=== PATIENT | male | born 1995 | race Caucasian/White ===

== ENCOUNTER 2021-02-24 14:48 | Inpatient (IN) | payer MEDICARE, MEDICAID ==
[~2021-02-24] VITALS: Ht 162.6 cm; Wt 56.0 kg
[~2021-02-24 14:48] MED LIST: ENAL2.5T47 PO; FAMO20TA10 PO; METO-158 PO; PRE5T PO
[2021-02-24] MEDS ORDERED: SODIUM CHLORIDE 0.9% 1,000 ML IV ONE (16:45)
[2021-02-24] MEDS ORDERED: HYDROmorphone HCL 2 MG/ML VL IV ONE ×2 (16:45→21:15)
[2021-02-24] MEDS ORDERED: PROMETHAZINE HCL 25 MG/ML 1ML IV PRN (16:45)
[2021-02-24 18:03] LABS: Basophils # (auto) 0 10 ^3/uL (0-0.2); Basophils % (auto) 0.1 % (0.0-2.0); Eosinophils # (auto) 0 10 ^3/uL (0-0.8); Eosinophils % (auto) 0.1 % (0.0-7.0); Hemoglobin 15.9 g/dL (13.5-17.5); Lymphocytes # (auto) 0.6 10 ^3/uL (0.4-5.4); Lymphocytes % (auto) 3.9 % (10.0-50.0); Mean Corpuscular Hemoglobin 29.4 pg (28.0-32.0); Mean Corpuscular Hgb Conc. 33.7 g/dL (32.0-36.0); Mean Corpuscular Volume 87.3 fL (80.0-100.0); Monocytes # (auto) 0.4 10 ^3/uL (0-1.3); Monocytes % (auto) 2.9 % (0.0-12.0); Neutrophils # (auto) 14.4 10 ^3/uL (1.6-8.6); Nucleated Red Blood Cells % 0.1 %; Red Blood Cells 5.38 10^6/uL (4.5-5.90); Red Cell Distribution Width 16.2 % (11.8-14.3); White Blood Cell 15.5 10^3/uL (4.4-10.8)
[2021-02-24 18:12] VITALS: BP 135/93
[2021-02-24 18:19] LABS: Albumin 4.4 g/dL (3.4-5.0); Calcium 9.8 mg/dL (8.5-10.1); Magnesium 2.4 mg/dL (1.6-2.6); Potassium 4.3 mmol/L (3.5-5.1)
[2021-02-24 18:22] LABS: Total Protein 8.4 g/dL (6.4-8.2)
[2021-02-24 18:37] LABS: BUN/Creatinine Ratio 87.5
[2021-02-24 20:07] VITALS: BP 141/91
[2021-02-24] MEDS ORDERED: levoFLOXacin 750MG 150 ML IV ONE (20:45)
[2021-02-24] MEDS ORDERED: LACTULOSE 10g/15ml SOLN PR ONE (20:45)
[2021-02-24] MEDS ORDERED: metroNIDAZOLE 500MG/100ML 100 ML IV ONE (20:45)
[2021-02-24] MEDS ORDERED: ONDANSETRON HCL 4 MG/2 ML VIAL IV ONE (21:15)
[2021-02-24] MEDS: SODIUM CHLORIDE 0.9% 1,000 ML IV SCH (22:00)
[2021-02-24] MEDS ORDERED: ACETAMINOPHEN 325 MG RECT SUPP PR PRN (22:00)
[2021-02-24] MEDS ORDERED: MORPHINE SULF INJ 2 MG/ML SYRINGE 1ML IV PRN (22:00)
[2021-02-24] MEDS ORDERED: NITROGLYCERIN 0.4 MG SL TAB SL PRN (22:00)
[2021-02-24] MEDS ORDERED: VANCOMYCIN PER PHARMACY 0 MG IV SCH (22:00)
[2021-02-24] MEDS ORDERED: VANCOMYCIN 1GM/250ML 250 ML IV ONE (22:15)
[2021-02-24 22:59] VITALS: BP 132/87
[2021-02-24] MEDS ORDERED: LACTULOSE 20Gm/30ML SOLN ONE ×2 (23:13→23:15)
[2021-02-25] VITALS (14 sets, daily range): BP systolic 120–139; BP diastolic 75–94
[2021-02-25] MEDS: FAMOTIDINE (10MG/ML) 2ML VL IV SCH ×3 (01:08→22:00)
[2021-02-25] MEDS ORDERED: diphenhdrAMINE HCL 50 MG/1 ML VL ONE (02:17)
[2021-02-25] MEDS ORDERED: diphenhdrAMINE HCL 50 MG/1 ML VL IV ONE (02:30)
[2021-02-25] MEDS: HYDROmorphone HCL 2 MG/ML VL IV PRN ×4 (04:45→20:15)
[2021-02-25 05:27] LABS: Basophils # (auto) 0 10 ^3/uL (0-0.2); Basophils % (auto) 0.3 % (0.0-2.0); Eosinophils # (auto) 0 10 ^3/uL (0-0.8); Eosinophils % (auto) 0.1 % (0.0-7.0); Hematocrit 43.1 % (41.0-53.0); Hemoglobin 14.5 g/dL (13.5-17.5); Lymphocytes # (auto) 1.4 10 ^3/uL (0.4-5.4); Lymphocytes % (auto) 16.2 % (10.0-50.0); Mean Corpuscular Hemoglobin 29.5 pg (28.0-32.0); Mean Corpuscular Hgb Conc. 33.6 g/dL (32.0-36.0); Mean Corpuscular Volume 87.6 fL (80.0-100.0); Monocytes # (auto) 0.5 10 ^3/uL (0-1.3); Monocytes % (auto) 6.4 % (0.0-12.0); Neutrophils # (auto) 6.5 10 ^3/uL (1.6-8.6); Nucleated Red Blood Cells % 0.1 %; Red Blood Cells 4.92 10^6/uL (4.5-5.90); Red Cell Distribution Width 15.9 % (11.8-14.3); White Blood Cell 8.4 10^3/uL (4.4-10.8)
[2021-02-25 05:43] LABS: Albumin 4.1 g/dL (3.4-5.0); Anion Gap 13 (5-15); Blood Urea Nitrogen 14 mg/dL (7-18); Carbon Dioxide 19 mmol/L (21-32); Chloride 109 mmol/L (98-107); Glucose 84 mg/dL (74-106); Potassium 3.2 mmol/L (3.5-5.1); Sodium 141 mmol/L (136-145)
[2021-02-25 05:47] LABS: Alanine Aminotransferase 40 U/L (16-61); Alkaline Phosphatase 142 U/L (45-117); Aspartate Aminotransferase 40 U/L (15-37); BUN/Creatinine Ratio 93.3; Bilirubin, Total 1.4 mg/dL (0.2-1.0); GFR African American 1054 mL/min; GFR Non-African American 871 mL/min
[2021-02-25] MEDS ORDERED: LACTULOSE 10g/15ml SOLN PR SCH ×2 (06:30)
[2021-02-25] MEDS: metroNIDAZOLE 500MG/100ML 100 ML IV SCH ×3 (06:45→22:00)
[2021-02-25] MEDS: ENOXAPARIN SOD 40 MG/0.4 ML SYRINGE SC SCH (08:46)
[2021-02-25] MEDS ORDERED: LACTULOSE 20Gm/30ML SOLN PO PRN (09:30)
[2021-02-25] MEDS: SODIUM CHLORIDE 0.9% 1,000 ML IV SCH ×2 (15:28→19:14)
[2021-02-25] MEDS ORDERED: levoFLOXacin 500MG 100 ML IV SCH (18:00)
[2021-02-25] MEDS: levoFLOXacin 750MG 150 ML IV SCH (20:00)
[2021-02-25] MEDS: METOPROLOL TARTRATE 25 MG TAB PO SCH (22:00)
[2021-02-26] VITALS (7 sets, daily range): BP systolic 113–139; BP diastolic 70–100
[2021-02-26] MEDS: HYDROmorphone HCL 2 MG/ML VL IV PRN ×6 (00:05→18:36)
[2021-02-26] MEDS: ONDANSETRON HCL 4 MG/2 ML VIAL IV PRN ×3 (02:36→14:26)
[2021-02-26] MEDS: metroNIDAZOLE 500MG/100ML 100 ML IV SCH ×3 (06:00→21:31)
[2021-02-26] MEDS: SODIUM CHLORIDE 0.9% 1,000 ML IV SCH ×2 (06:15→18:08)
[2021-02-26] MEDS: ENOXAPARIN SOD 40 MG/0.4 ML SYRINGE SC SCH (09:12)
[2021-02-26] MEDS: FAMOTIDINE (10MG/ML) 2ML VL IV SCH ×2 (09:12→21:31)
[2021-02-26] MEDS: METOPROLOL TARTRATE 25 MG TAB PO SCH ×2 (09:45→21:32)
[2021-02-26] MEDS ORDERED: levoFLOXacin 750MG 150 ML IV SCH (10:00)
[2021-02-26] MEDS: POTASSIUM CHL 20 Meq TABLET PO ONE ×2 (12:20→12:29)
[2021-02-26 12:30] LABS: Basophils # (auto) 0 10 ^3/uL (0-0.2); Basophils % (auto) 0.5 % (0.0-2.0); Eosinophils # (auto) 0.1 10 ^3/uL (0-0.8); Eosinophils % (auto) 0.8 % (0.0-7.0); Hematocrit 37.4 % (41.0-53.0); Hemoglobin 12.5 g/dL (13.5-17.5); Lymphocytes # (auto) 1.7 10 ^3/uL (0.4-5.4); Lymphocytes % (auto) 24.6 % (10.0-50.0); Mean Corpuscular Hemoglobin 29.6 pg (28.0-32.0); Mean Corpuscular Hgb Conc. 33.3 g/dL (32.0-36.0); Mean Corpuscular Volume 88.9 fL (80.0-100.0); Monocytes # (auto) 0.5 10 ^3/uL (0-1.3); Monocytes % (auto) 7.8 % (0.0-12.0); Neutrophils # (auto) 4.5 10 ^3/uL (1.6-8.6); Neutrophils % (auto) 66.3 % (37.0-80.0); Nucleated Red Blood Cells % 0.2 %; Red Cell Distribution Width 16.3 % (11.8-14.3); White Blood Cell 6.8 10^3/uL (4.4-10.8)
[2021-02-26] MEDS ORDERED: POTASSIUM EFFERVESENT TAB 25 MEQ GT ONE (12:30)
[2021-02-26 12:45] LABS: Phosphorus 3.4 mg/dL (2.5-4.90)
[2021-02-26] MEDS ORDERED: LORazepam 2MG/ML-1ML VIAL IV ONE ×2 (13:15→13:30)
[2021-02-26] MEDS ORDERED: LORazepam 2MG/ML-1ML VIAL IV PRN (13:15)
[2021-02-26] MEDS ORDERED: SUCRALFATE 1 GM/10 ML ORAL SUSP PO SCH (13:45)
[2021-02-26] MEDS: PANTOPRAZOLE 40 MG TAB PO SCH ×2 (14:13→21:33)
[2021-02-26] MEDS: SUCRALFATE 1 GM/10 ML ORAL SUSP PO SCH ×2 (16:45→21:32)
[2021-02-26] MEDS: ALPRAZolam 0.25 MG TAB PO PRN (16:55)
[2021-02-26] MEDS: levoFLOXacin 750MG 150 ML IV SCH (20:52)
[2021-02-27] VITALS (59 sets, daily range): BP systolic 91–146; BP diastolic 50–106
[2021-02-27] MEDS: HYDROmorphone HCL 2 MG/ML VL IV PRN ×2 (00:03→21:13)
[2021-02-27] MEDS: ALPRAZolam 0.25 MG TAB PO PRN ×2 (00:04→08:19)
[2021-02-27] MEDS: SUCRALFATE 1 GM/10 ML ORAL SUSP PO SCH ×4 (06:34→22:00)
[2021-02-27] MEDS: metroNIDAZOLE 500MG/100ML 100 ML IV SCH ×3 (06:40→22:33)
[2021-02-27] MEDS: SODIUM CHLORIDE 0.9% 1,000 ML IV SCH ×2 (07:15→21:12)
[2021-02-27] MEDS: FAMOTIDINE (10MG/ML) 2ML VL IV SCH ×2 (09:39→22:33)
[2021-02-27] MEDS: ENOXAPARIN SOD 40 MG/0.4 ML SYRINGE SC SCH (09:39)
[2021-02-27] MEDS: METOPROLOL TARTRATE 25 MG TAB PO SCH ×2 (09:39→22:00)
[2021-02-27] MEDS: PANTOPRAZOLE 40 MG TAB PO SCH ×2 (09:40→22:00)
[2021-02-27] MEDS ORDERED: ACETYLCYSTEINE 10 %(100MG/ML) SOL 4ML NEB ONE (09:45)
[2021-02-27] MEDS ORDERED: ALBUTEROL SULF 2.5 MG/0.5ML(0.5%) NEB SOLN NEB ONE (09:45)
[2021-02-27 10:04] LABS: Basophils # (auto) 0 10 ^3/uL (0-0.2); Basophils % (auto) 0.2 % (0.0-2.0); Eosinophils # (auto) 0 10 ^3/uL (0-0.8); Eosinophils % (auto) 0.1 % (0.0-7.0); Hemoglobin 14.2 g/dL (13.5-17.5); Lymphocytes % (auto) 6.9 % (10.0-50.0); Mean Corpuscular Hemoglobin 29.4 pg (28.0-32.0); Mean Corpuscular Volume 89.1 fL (80.0-100.0); Monocytes # (auto) 0.6 10 ^3/uL (0-1.3); Monocytes % (auto) 4.4 % (0.0-12.0); Neutrophils # (auto) 12.2 10 ^3/uL (1.6-8.6); Neutrophils % (auto) 88.4 % (37.0-80.0); Red Blood Cells 4.83 10^6/uL (4.5-5.90); Red Cell Distribution Width 15.9 % (11.8-14.3); White Blood Cell 13.8 10^3/uL (4.4-10.8)
[2021-02-27 10:20] LABS: Albumin 3.8 g/dL (3.4-5.0); Anion Gap 12 (5-15); Blood Urea Nitrogen 5 mg/dL (7-18); Calcium 8.8 mg/dL (8.5-10.1); Carbon Dioxide 16 mmol/L (21-32); Chloride 109 mmol/L (98-107); Glucose 76 mg/dL (74-106); Potassium 4.5 mmol/L (3.5-5.1); Sodium 137 mmol/L (136-145)
[2021-02-27 10:27] LABS: Alanine Aminotransferase 39 U/L (16-61); Alkaline Phosphatase 143 U/L (45-117); Aspartate Aminotransferase 65 U/L (15-37); Bilirubin, Total 0.8 mg/dL (0.2-1.0); Total Protein 7.6 g/dL (6.4-8.2)
[2021-02-27 10:29] LABS: BUN/Creatinine Ratio 33.3; GFR African American 1054 mL/min; GFR Non-African American 871 mL/min
[2021-02-27] MEDS: IPRATROPIUM BROM 0.5 MG/2.5ML INH SOL NEB SCH ×3 (13:53→22:11)
[2021-02-27] MEDS: ACETYLCYSTEINE 20%(200MG/ML) SOL 4ML NEB SCH ×3 (13:53→22:11)
[2021-02-27] MEDS: ALBUTEROL SULF 2.5 MG/0.5ML(0.5%) NEB SOLN NEB SCH ×3 (13:53→22:11)
[2021-02-27] MEDS ORDERED: levoFLOXacin 750MG 150 ML IV SCH (18:00)
[2021-02-27] MEDS: levoFLOXacin 750MG 150 ML IV SCH (21:13)
[2021-02-28] VITALS (83 sets, daily range): BP systolic 70–117; BP diastolic 36–83
[2021-02-28 03:52] LABS: Basophils # (auto) 0 10 ^3/uL (0-0.2); Basophils % (auto) 0.1 % (0.0-2.0); Eosinophils # (auto) 0 10 ^3/uL (0-0.8); Eosinophils % (auto) 0.3 % (0.0-7.0); Hematocrit 42.3 % (41.0-53.0); Hemoglobin 14.1 g/dL (13.5-17.5); Lymphocytes # (auto) 0.9 10 ^3/uL (0.4-5.4); Lymphocytes % (auto) 10.5 % (10.0-50.0); Mean Corpuscular Hemoglobin 29.4 pg (28.0-32.0); Mean Corpuscular Hgb Conc. 33.3 g/dL (32.0-36.0); Mean Corpuscular Volume 88.2 fL (80.0-100.0); Monocytes # (auto) 0.5 10 ^3/uL (0-1.3); Monocytes % (auto) 6.3 % (0.0-12.0); Neutrophils % (auto) 82.8 % (37.0-80.0); Nucleated Red Blood Cells % 0.1 %; Red Cell Distribution Width 15.9 % (11.8-14.3); White Blood Cell 8.4 10^3/uL (4.4-10.8)
[2021-02-28 04:11] LABS: Anion Gap 16 (5-15); Blood Urea Nitrogen 7 mg/dL (7-18); Calcium 9.2 mg/dL (8.5-10.1); Carbon Dioxide 13 mmol/L (21-32); Chloride 113 mmol/L (98-107); Glucose 69 mg/dL (74-106); Potassium 3.4 mmol/L (3.5-5.1); Sodium 142 mmol/L (136-145)
[2021-02-28 04:16] LABS: BUN/Creatinine Ratio 46.7; GFR African American 1054 mL/min; GFR Non-African American 871 mL/min
[2021-02-28] MEDS: metroNIDAZOLE 500MG/100ML 100 ML IV SCH ×3 (06:00→22:26)
[2021-02-28] MEDS: ACETYLCYSTEINE 20%(200MG/ML) SOL 4ML NEB SCH ×5 (06:28→22:27)
[2021-02-28] MEDS: IPRATROPIUM BROM 0.5 MG/2.5ML INH SOL NEB SCH ×5 (06:28→22:27)
[2021-02-28] MEDS: ALBUTEROL SULF 2.5 MG/0.5ML(0.5%) NEB SOLN NEB SCH ×5 (06:29→22:27)
[2021-02-28] MEDS: SUCRALFATE 1 GM/10 ML ORAL SUSP PO SCH ×4 (07:00→22:00)
[2021-02-28] MEDS: SODIUM CHLORIDE 0.9% 1,000 ML IV SCH ×2 (08:15→21:28)
[2021-02-28] MEDS: PANTOPRAZOLE 40 MG TAB PO SCH ×2 (08:57→22:27)
[2021-02-28] MEDS: HYDROmorphone HCL 2 MG/ML VL IV PRN ×3 (09:11→19:48)
[2021-02-28] MEDS: FAMOTIDINE (10MG/ML) 2ML VL IV SCH (09:11)
[2021-02-28] MEDS: METOPROLOL TARTRATE 25 MG TAB PO SCH ×2 (09:47→22:00)
[2021-02-28] MEDS: ENOXAPARIN SOD 40 MG/0.4 ML SYRINGE SC SCH (10:00)
[2021-02-28 10:21] LABS: INR 1.12 (0.9-1.15)
[2021-02-28] MEDS ORDERED: IOHEXOL 350 MG/ML 100ML IJ ONE (12:36)
[2021-02-28] MEDS ORDERED: DEXTROSE 50% SYRINGE 50 ML IV ONE (15:56)
[2021-02-28] MEDS: levoFLOXacin 750MG 150 ML IV SCH (19:48)
[2021-02-28] MEDS: NOREPINEPHRINE 8 MG/250ML KIT 250 ML IV SCH (21:28)
[2021-02-28] MEDS: ONDANSETRON HCL 4 MG/2 ML VIAL IV PRN (21:45)
[2021-02-28] MEDS ORDERED: DEXTROSE (50%) 50ML SYRG IV PRN (23:00)
[2021-03-01] VITALS (105 sets, daily range): BP systolic 83–126; BP diastolic 43–91
[2021-03-01] MEDS: ACCU-CHEK COMFORT CURVE STRIP VI SCH ×7 (00:10→23:55)
[2021-03-01] MEDS: HYDROmorphone HCL 2 MG/ML VL IV PRN ×6 (01:25→22:03)
[2021-03-01] MEDS: InsuLIN REG 1unit/0.01ml Soln (100units/ml) SC SCH ×7 (04:00→23:55)
[2021-03-01 04:27] LABS: Basophils # (auto) 0 10 ^3/uL (0-0.2); Basophils % (auto) 0.3 % (0.0-2.0); Eosinophils # (auto) 0 10 ^3/uL (0-0.8); Eosinophils % (auto) 0.2 % (0.0-7.0); Hematocrit 32.7 % (41.0-53.0); Hemoglobin 11.1 g/dL (13.5-17.5); Lymphocytes # (auto) 0.9 10 ^3/uL (0.4-5.4); Lymphocytes % (auto) 9.4 % (10.0-50.0); Mean Corpuscular Hemoglobin 29.3 pg (28.0-32.0); Mean Corpuscular Hgb Conc. 33.9 g/dL (32.0-36.0); Mean Corpuscular Volume 86.3 fL (80.0-100.0); Monocytes # (auto) 0.6 10 ^3/uL (0-1.3); Monocytes % (auto) 6.4 % (0.0-12.0); Neutrophils # (auto) 8.4 10 ^3/uL (1.6-8.6); Neutrophils % (auto) 83.7 % (37.0-80.0); Red Blood Cells 3.79 10^6/uL (4.5-5.90); Red Cell Distribution Width 15.8 % (11.8-14.3); White Blood Cell 10.1 10^3/uL (4.4-10.8)
[2021-03-01 04:44] LABS: BUN/Creatinine Ratio 31.3; Calcium 8.1 mg/dL (8.5-10.1); Potassium 3.3 mmol/L (3.5-5.1)
[2021-03-01] MEDS: metroNIDAZOLE 500MG/100ML 100 ML IV SCH ×3 (05:22→22:01)
[2021-03-01 06:00] LABS: Urine Bacteria FEW /hpf (None Seen); Urine Blood 1+ /uL (Negative); Urine Hyaline Cast FEW /lpf (0 - 2); Urine Mucus FEW (None Seen); Urine WBC 1 /hpf (0 - 3)
[2021-03-01] MEDS: IPRATROPIUM BROM 0.5 MG/2.5ML INH SOL NEB SCH ×5 (06:56→22:38)
[2021-03-01] MEDS: ALBUTEROL SULF 2.5 MG/0.5ML(0.5%) NEB SOLN NEB SCH ×5 (06:56→22:38)
[2021-03-01] MEDS: ACETYLCYSTEINE 20%(200MG/ML) SOL 4ML NEB SCH ×5 (06:57→22:38)
[2021-03-01] MEDS: SUCRALFATE 1 GM/10 ML ORAL SUSP PO SCH ×4 (09:40→21:59)
[2021-03-01] MEDS: ENOXAPARIN SOD 40 MG/0.4 ML SYRINGE SC SCH ×2 (10:00→10:36)
[2021-03-01] MEDS: SODIUM CHLORIDE 0.9% 1,000 ML IV SCH ×2 (10:00→21:59)
[2021-03-01] MEDS: METOPROLOL TARTRATE 25 MG TAB PO SCH ×2 (10:31→22:00)
[2021-03-01] MEDS: PANTOPRAZOLE 40 MG TAB PO SCH ×2 (10:32→21:59)
[2021-03-01] MEDS ORDERED: POTASSIUM CHL 20MEQ/100ML 100 ML IV ONE (11:00)
[2021-03-01] MEDS: levoFLOXacin 750MG 150 ML IV SCH (20:26)
[2021-03-01] MEDS: NOREPINEPHRINE 8 MG/250ML KIT 250 ML IV SCH (20:27)
[2021-03-01] MEDS: ONDANSETRON HCL 4 MG/2 ML VIAL IV PRN (22:17)
[2021-03-02] VITALS (62 sets, daily range): BP systolic 92–139; BP diastolic 54–94
[2021-03-02] MEDS: ONDANSETRON HCL 4 MG/2 ML VIAL IV PRN ×4 (03:42→22:16)
[2021-03-02] MEDS: ACCU-CHEK COMFORT CURVE STRIP VI SCH ×5 (03:57→19:29)
[2021-03-02] MEDS: InsuLIN REG 1unit/0.01ml Soln (100units/ml) SC SCH ×5 (03:57→19:29)
[2021-03-02 04:15] LABS: Basophils # (auto) 0 10 ^3/uL (0-0.2); Basophils % (auto) 0.3 % (0.0-2.0); Eosinophils # (auto) 0 10 ^3/uL (0-0.8); Eosinophils % (auto) 0.6 % (0.0-7.0); Hematocrit 30.8 % (41.0-53.0); Hemoglobin 10.7 g/dL (13.5-17.5); Lymphocytes # (auto) 1.3 10 ^3/uL (0.4-5.4); Mean Corpuscular Hemoglobin 29.9 pg (28.0-32.0); Mean Corpuscular Hgb Conc. 34.8 g/dL (32.0-36.0); Mean Corpuscular Volume 85.8 fL (80.0-100.0); Monocytes # (auto) 0.4 10 ^3/uL (0-1.3); Monocytes % (auto) 5.8 % (0.0-12.0); Neutrophils # (auto) 4.6 10 ^3/uL (1.6-8.6); Neutrophils % (auto) 73.3 % (37.0-80.0); Nucleated Red Blood Cells % 0.1 %; Red Cell Distribution Width 15.7 % (11.8-14.3); White Blood Cell 6.3 10^3/uL (4.4-10.8)
[2021-03-02 04:32] LABS: Anion Gap 10 (5-15); Blood Urea Nitrogen 3 mg/dL (7-18); Calcium 7.8 mg/dL (8.5-10.1); Carbon Dioxide 18 mmol/L (21-32); Chloride 110 mmol/L (98-107); Glucose 74 mg/dL (74-106); Potassium 3.3 mmol/L (3.5-5.1); Sodium 138 mmol/L (136-145)
[2021-03-02 04:37] LABS: GFR African American 1054 mL/min; GFR Non-African American 871 mL/min
[2021-03-02] MEDS: HYDROmorphone HCL 2 MG/ML VL IV PRN ×5 (05:25→21:05)
[2021-03-02] MEDS: metroNIDAZOLE 500MG/100ML 100 ML IV SCH ×3 (05:36→22:22)
[2021-03-02] MEDS ORDERED: MAGNESIUM SULFATE 1GM/100ML 100 ML IV ONE (06:26)
[2021-03-02] MEDS ORDERED: POTASSIUM CHL 20MEQ/100ML 100 ML IV ONE (06:30)
[2021-03-02] MEDS: IPRATROPIUM BROM 0.5 MG/2.5ML INH SOL NEB SCH ×5 (06:31→22:44)
[2021-03-02] MEDS: ALBUTEROL SULF 2.5 MG/0.5ML(0.5%) NEB SOLN NEB SCH ×5 (06:31→22:44)
[2021-03-02] MEDS: ACETYLCYSTEINE 20%(200MG/ML) SOL 4ML NEB SCH ×5 (06:31→22:45)
[2021-03-02] MEDS: MAGNESIUM SULFATE 1GM/100ML 100 ML IV SCH ×4 (06:33→11:20)
[2021-03-02] MEDS: SUCRALFATE 1 GM/10 ML ORAL SUSP PO SCH ×4 (06:34→22:22)
[2021-03-02] MEDS ORDERED: FAMOTIDINE (10MG/ML) 2ML VL IV SCH (08:00)
[2021-03-02] MEDS: METOPROLOL TARTRATE 25 MG TAB PO SCH ×2 (10:17→22:00)
[2021-03-02] MEDS: ENOXAPARIN SOD 40 MG/0.4 ML SYRINGE SC SCH (10:18)
[2021-03-02] MEDS: SODIUM CHLORIDE 0.9% 1,000 ML IV SCH ×2 (10:39→23:44)
[2021-03-02] MEDS: PANTOPRAZOLE 40 MG/10 ML VIAL INJ IV SCH ×2 (11:20→22:22)
[2021-03-02] MEDS: NOREPINEPHRINE 8 MG/250ML KIT 250 ML IV SCH (12:00)
[2021-03-02] MEDS ORDERED: SODIUM CHLORIDE 0.9 % NEB SOLN 3ML NEB ONE ×2 (18:52→19:32)
[2021-03-02] MEDS: ALPRAZolam 0.25 MG TAB PO PRN (19:27)
[2021-03-02] MEDS: levoFLOXacin 750MG 150 ML IV SCH (19:31)
[2021-03-03] VITALS (39 sets, daily range): BP systolic 99–139; BP diastolic 65–94
[2021-03-03] MEDS: ACCU-CHEK COMFORT CURVE STRIP VI SCH ×6 (00:22→20:01)
[2021-03-03] MEDS: HYDROmorphone HCL 2 MG/ML VL IV PRN ×6 (00:28→21:47)
[2021-03-03 03:57] LABS: Basophils # (auto) 0 10 ^3/uL (0-0.2); Basophils % (auto) 0.3 % (0.0-2.0); Eosinophils # (auto) 0 10 ^3/uL (0-0.8); Eosinophils % (auto) 0.7 % (0.0-7.0); Hematocrit 33.9 % (41.0-53.0); Hemoglobin 11.5 g/dL (13.5-17.5); Lymphocytes # (auto) 0.9 10 ^3/uL (0.4-5.4); Lymphocytes % (auto) 13.4 % (10.0-50.0); Mean Corpuscular Hemoglobin 29.2 pg (28.0-32.0); Mean Corpuscular Hgb Conc. 33.9 g/dL (32.0-36.0); Mean Corpuscular Volume 86.3 fL (80.0-100.0); Monocytes # (auto) 0.3 10 ^3/uL (0-1.3); Monocytes % (auto) 4.3 % (0.0-12.0); Neutrophils # (auto) 5.4 10 ^3/uL (1.6-8.6); Neutrophils % (auto) 81.3 % (37.0-80.0); Red Blood Cells 3.93 10^6/uL (4.5-5.90); Red Cell Distribution Width 15.9 % (11.8-14.3); White Blood Cell 6.6 10^3/uL (4.4-10.8)
[2021-03-03] MEDS: InsuLIN REG 1unit/0.01ml Soln (100units/ml) SC SCH ×6 (04:00→20:00)
[2021-03-03 04:15] LABS: Anion Gap 11 (5-15); Blood Urea Nitrogen 2 mg/dL (7-18); Carbon Dioxide 17 mmol/L (21-32); Chloride 112 mmol/L (98-107); Glucose 76 mg/dL (74-106); Potassium 3.2 mmol/L (3.5-5.1); Sodium 140 mmol/L (136-145)
[2021-03-03 04:31] LABS: BUN/Creatinine Ratio 13.3; GFR African American 1054 mL/min; GFR Non-African American 871 mL/min
[2021-03-03] MEDS: metroNIDAZOLE 500MG/100ML 100 ML IV SCH ×3 (06:17→21:59)
[2021-03-03] MEDS: SUCRALFATE 1 GM/10 ML ORAL SUSP PO SCH ×4 (06:32→21:48)
[2021-03-03] MEDS: ALBUTEROL SULF 2.5 MG/0.5ML(0.5%) NEB SOLN NEB SCH ×5 (07:02→22:19)
[2021-03-03] MEDS: IPRATROPIUM BROM 0.5 MG/2.5ML INH SOL NEB SCH ×5 (07:02→22:19)
[2021-03-03] MEDS: ACETYLCYSTEINE 20%(200MG/ML) SOL 4ML NEB SCH ×5 (07:03→22:20)
[2021-03-03] MEDS: ENOXAPARIN SOD 40 MG/0.4 ML SYRINGE SC SCH (09:43)
[2021-03-03] MEDS: PANTOPRAZOLE 40 MG/10 ML VIAL INJ IV SCH ×2 (09:43→21:46)
[2021-03-03] MEDS: METOPROLOL TARTRATE 25 MG TAB PO SCH ×2 (09:43→21:48)
[2021-03-03] MEDS: NOREPINEPHRINE 8 MG/250ML KIT 250 ML IV SCH (09:44)
[2021-03-03] MEDS: SODIUM CHLORIDE 0.9% 1,000 ML IV SCH ×2 (13:29→23:45)
[2021-03-03] MEDS ORDERED: LIDOCAINE 2%HCL (LOCAL ANESTH.) INJ 20ML MDV ONE (14:08)
[2021-03-03] MEDS ORDERED: LIDOCAINE HCL 2% TOP JELLY 5ML TOP ONE (14:08)
[2021-03-03] MEDS ORDERED: MIDAZOLAM HCL 5 MG/ML-1ML VIAL ONE (14:09)
[2021-03-03] MEDS ORDERED: fentaNYL CITRATE 100 MCG/2 ML VL ONE (14:09)
[2021-03-03] MEDS ORDERED: SODIUM CHLORIDE LOCK 0 ML ONE (14:10)
[2021-03-03] MEDS ORDERED: EPINEPHrine HCL 1 MG/1 ML AMP ONE (14:10)
[2021-03-03] MEDS ORDERED: POTASSIUM CHL 20MEQ/100ML 100 ML IV ONE (16:44)
[2021-03-03] MEDS: POTASSIUM CHL 20MEQ/100ML 100 ML IV SCH ×2 (17:00→18:37)
[2021-03-03] MEDS: levoFLOXacin 750MG 150 ML IV SCH (19:56)
[2021-03-03] MEDS: ALPRAZolam 0.25 MG TAB PO PRN (20:43)
[2021-03-03] MEDS: ONDANSETRON HCL 4 MG/2 ML VIAL IV PRN (21:47)
[2021-03-03] MEDS ORDERED: SODIUM CHLORIDE 0.9 % NEB SOLN 3ML NEB ONE (22:59)
[2021-03-04] MEDS: ACCU-CHEK COMFORT CURVE STRIP VI SCH ×6 (00:18→20:45)
[2021-03-04] MEDS: HYDROmorphone HCL 2 MG/ML VL IV PRN ×5 (01:58→21:37)
[2021-03-04] MEDS: InsuLIN REG 1unit/0.01ml Soln (100units/ml) SC SCH ×6 (04:00→20:00)
[2021-03-04 05:00] VITALS: BP 100/70
[2021-03-04] MEDS: SUCRALFATE 1 GM/10 ML ORAL SUSP PO SCH ×4 (05:35→21:37)
[2021-03-04] MEDS: metroNIDAZOLE 500MG/100ML 100 ML IV SCH ×3 (05:35→21:37)
[2021-03-04] MEDS: IPRATROPIUM BROM 0.5 MG/2.5ML INH SOL NEB SCH ×5 (06:37→21:41)
[2021-03-04] MEDS: ALBUTEROL SULF 2.5 MG/0.5ML(0.5%) NEB SOLN NEB SCH ×5 (06:37→21:41)
[2021-03-04] MEDS: ACETYLCYSTEINE 20%(200MG/ML) SOL 4ML NEB SCH ×5 (06:37→21:41)
[2021-03-04 09:00] VITALS: BP 109/73
[2021-03-04] MEDS: ONDANSETRON HCL 4 MG/2 ML VIAL IV PRN ×2 (10:08→22:31)
[2021-03-04] MEDS: PANTOPRAZOLE 40 MG/10 ML VIAL INJ IV SCH ×2 (10:47→21:37)
[2021-03-04] MEDS: METOPROLOL TARTRATE 25 MG TAB PO SCH ×2 (10:48→22:00)
[2021-03-04] MEDS: ENOXAPARIN SOD 40 MG/0.4 ML SYRINGE SC SCH (10:48)
[2021-03-04 10:50] LABS: Basophils # (auto) 0.1 10 ^3/uL (0-0.2); Basophils % (auto) 0.6 % (0.0-2.0); Eosinophils # (auto) 0.2 10 ^3/uL (0-0.8); Hematocrit 37.9 % (41.0-53.0); Hemoglobin 12.5 g/dL (13.5-17.5); Lymphocytes # (auto) 1.7 10 ^3/uL (0.4-5.4); Lymphocytes % (auto) 18.3 % (10.0-50.0); Mean Corpuscular Hemoglobin 28.7 pg (28.0-32.0); Mean Corpuscular Hgb Conc. 32.9 g/dL (32.0-36.0); Mean Corpuscular Volume 87.2 fL (80.0-100.0); Monocytes # (auto) 0.4 10 ^3/uL (0-1.3); Monocytes % (auto) 4.7 % (0.0-12.0); Neutrophils # (auto) 6.9 10 ^3/uL (1.6-8.6); Neutrophils % (auto) 74.4 % (37.0-80.0); Nucleated Red Blood Cells % 0.1 %; Red Blood Cells 4.35 10^6/uL (4.5-5.90); Red Cell Distribution Width 15.8 % (11.8-14.3); White Blood Cell 9.3 10^3/uL (4.4-10.8)
[2021-03-04 11:06] LABS: Albumin 2.8 g/dL (3.4-5.0); Anion Gap 10 (5-15); Blood Urea Nitrogen 1 mg/dL (7-18); Calcium 8.4 mg/dL (8.5-10.1); Carbon Dioxide 18 mmol/L (21-32); Chloride 108 mmol/L (98-107); Glucose 74 mg/dL (74-106); Potassium 4.3 mmol/L (3.5-5.1); Sodium 136 mmol/L (136-145)
[2021-03-04 11:09] LABS: Alanine Aminotransferase 20 U/L (16-61); Alkaline Phosphatase 87 U/L (45-117); Aspartate Aminotransferase 35 U/L (15-37); Bilirubin, Total 0.8 mg/dL (0.2-1.0); Total Protein 5.8 g/dL (6.4-8.2)
[2021-03-04 11:11] LABS: BUN/Creatinine Ratio 6.7; GFR African American 1054 mL/min; GFR Non-African American 871 mL/min
[2021-03-04] MEDS: SODIUM CHLORIDE 0.9% 1,000 ML IV SCH (12:15)
[2021-03-04 13:00] VITALS: BP 111/84
[2021-03-04 17:14] VITALS: BP 94/64
[2021-03-04] MEDS: levoFLOXacin 750MG 150 ML IV SCH (20:45)
[2021-03-04 21:40] VITALS: BP 97/71
[2021-03-04 22:00] VITALS: BP 97/71
[2021-03-05] MEDS: ACCU-CHEK COMFORT CURVE STRIP VI SCH ×7 (00:06→23:57)
[2021-03-05] MEDS: SODIUM CHLORIDE 0.9% 1,000 ML IV SCH ×2 (00:45→01:42)
[2021-03-05] MEDS: HYDROmorphone HCL 2 MG/ML VL IV PRN ×5 (01:40→21:02)
[2021-03-05] MEDS: InsuLIN REG 1unit/0.01ml Soln (100units/ml) SC SCH ×7 (04:00→23:57)
[2021-03-05 05:00] VITALS: BP 98/54
[2021-03-05] MEDS: IPRATROPIUM BROM 0.5 MG/2.5ML INH SOL NEB SCH ×5 (06:01→22:41)
[2021-03-05] MEDS: ALBUTEROL SULF 2.5 MG/0.5ML(0.5%) NEB SOLN NEB SCH ×5 (06:01→22:41)
[2021-03-05] MEDS: ACETYLCYSTEINE 20%(200MG/ML) SOL 4ML NEB SCH ×5 (06:02→22:42)
[2021-03-05] MEDS: metroNIDAZOLE 500MG/100ML 100 ML IV SCH ×3 (06:11→21:59)
[2021-03-05] MEDS: SUCRALFATE 1 GM/10 ML ORAL SUSP PO SCH ×4 (06:11→21:58)
[2021-03-05] MEDS: Ensure Enlive Chocolate 8oz Bottle PO SCH ×3 (08:00→18:06)
[2021-03-05 08:34] VITALS: BP 124/84
[2021-03-05] MEDS: ENOXAPARIN SOD 40 MG/0.4 ML SYRINGE SC SCH (09:16)
[2021-03-05] MEDS: METOPROLOL TARTRATE 25 MG TAB PO SCH ×2 (09:16→21:57)
[2021-03-05] MEDS: PANTOPRAZOLE 40 MG/10 ML VIAL INJ IV SCH ×2 (09:16→21:59)
[2021-03-05 12:30] VITALS: BP 98/45
[2021-03-05] MEDS: D5W/SOD CHL 0.45% 1,000 ML IV SCH (13:34)
[2021-03-05 14:35] VITALS: BP 112/80
[2021-03-05 17:00] VITALS: BP 107/69
[2021-03-05] MEDS: levoFLOXacin 750MG 150 ML IV SCH (20:39)
[2021-03-05 22:00] VITALS: BP 97/57
[2021-03-05] MEDS: ONDANSETRON HCL 4 MG/2 ML VIAL IV PRN (22:00)
[2021-03-06] MEDS: HYDROmorphone HCL 2 MG/ML VL IV PRN ×6 (00:19→21:46)
[2021-03-06] MEDS: D5W/SOD CHL 0.45% 1,000 ML IV SCH ×2 (03:25→15:40)
[2021-03-06] MEDS: InsuLIN REG 1unit/0.01ml Soln (100units/ml) SC SCH ×5 (04:00→20:00)
[2021-03-06] MEDS: ACCU-CHEK COMFORT CURVE STRIP VI SCH ×5 (04:34→21:46)
[2021-03-06 05:00] VITALS: BP 100/75
[2021-03-06 05:32] LABS: Basophils # (auto) 0 10 ^3/uL (0-0.2); Basophils % (auto) 0.3 % (0.0-2.0); Eosinophils # (auto) 0.1 10 ^3/uL (0-0.8); Hematocrit 32.6 % (41.0-53.0); Lymphocytes # (auto) 1.4 10 ^3/uL (0.4-5.4); Lymphocytes % (auto) 15.7 % (10.0-50.0); Mean Corpuscular Hemoglobin 28.9 pg (28.0-32.0); Mean Corpuscular Hgb Conc. 33.6 g/dL (32.0-36.0); Mean Corpuscular Volume 85.9 fL (80.0-100.0); Monocytes # (auto) 0.6 10 ^3/uL (0-1.3); Monocytes % (auto) 6.2 % (0.0-12.0); Neutrophils # (auto) 6.9 10 ^3/uL (1.6-8.6); Neutrophils % (auto) 76.8 % (37.0-80.0); Red Blood Cells 3.79 10^6/uL (4.5-5.90); Red Cell Distribution Width 15.6 % (11.8-14.3)
[2021-03-06 06:00] LABS: Chloride 111 mmol/L (98-107); Sodium 139 mmol/L (136-145)
[2021-03-06] MEDS: IPRATROPIUM BROM 0.5 MG/2.5ML INH SOL NEB SCH ×5 (06:00→22:17)
[2021-03-06] MEDS: ACETYLCYSTEINE 20%(200MG/ML) SOL 4ML NEB SCH ×5 (06:00→22:17)
[2021-03-06] MEDS: ALBUTEROL SULF 2.5 MG/0.5ML(0.5%) NEB SOLN NEB SCH ×5 (06:00→22:17)
[2021-03-06 06:10] LABS: Anion Gap 10 (5-15); Blood Urea Nitrogen 2 mg/dL (7-18); Carbon Dioxide 18 mmol/L (21-32); Glucose 105 mg/dL (74-106); Magnesium 1.6 mg/dL (1.6-2.6); Phosphorus 2.1 mg/dL (2.5-4.90)
[2021-03-06 06:14] LABS: BUN/Creatinine Ratio 13.3; GFR African American 1054 mL/min; GFR Non-African American 871 mL/min
[2021-03-06] MEDS: metroNIDAZOLE 500MG/100ML 100 ML IV SCH ×3 (06:25→22:41)
[2021-03-06] MEDS: SUCRALFATE 1 GM/10 ML ORAL SUSP PO SCH ×4 (06:25→22:41)
[2021-03-06] MEDS: Ensure Enlive Chocolate 8oz Bottle PO SCH ×3 (08:11→18:19)
[2021-03-06 08:59] VITALS: BP 97/53
[2021-03-06] MEDS: ENOXAPARIN SOD 40 MG/0.4 ML SYRINGE SC SCH (09:45)
[2021-03-06] MEDS: PANTOPRAZOLE 40 MG/10 ML VIAL INJ IV SCH ×2 (09:46→22:41)
[2021-03-06] MEDS: METOPROLOL TARTRATE 25 MG TAB PO SCH ×2 (10:00→22:00)
[2021-03-06] MEDS ORDERED: POTASSIUM CHLORIDE 40 MEQ, LIDOCAINE 1% (LOCAL ANESTH.) 4 ML in SODIUM CHL 0.9% 250 ML IV ONE (11:45)
[2021-03-06] MEDS ORDERED: MAGNESIUM SULFATE 1GM/100ML 100 ML IV SCH (12:00)
[2021-03-06 12:53] VITALS: BP 109/67
[2021-03-06] MEDS ORDERED: POTASSIUM PHOSPHATE 22 MEQ in SODIUM CHL 0.9% 100 ML IV ONE (15:45)
[2021-03-06 17:00] VITALS: BP 100/66
[2021-03-06] MEDS: MAGNESIUM SULFATE 1GM/100ML 100 ML IV SCH ×2 (21:36→22:41)
[2021-03-06] MEDS: levoFLOXacin 750MG 150 ML IV SCH (21:37)
[2021-03-06 22:00] VITALS: BP 99/64
[2021-03-07] MEDS: MAGNESIUM SULFATE 1GM/100ML 100 ML IV SCH (00:03)
[2021-03-07] MEDS: ACCU-CHEK COMFORT CURVE STRIP VI SCH ×6 (00:11→21:36)
[2021-03-07] MEDS: HYDROmorphone HCL 2 MG/ML VL IV PRN ×5 (01:48→21:37)
[2021-03-07] MEDS: InsuLIN REG 1unit/0.01ml Soln (100units/ml) SC SCH ×6 (04:00→20:00)
[2021-03-07] MEDS: D5W/SOD CHL 0.45% 1,000 ML IV SCH ×2 (04:27→17:13)
[2021-03-07 05:00] VITALS: BP 106/61
[2021-03-07] MEDS: metroNIDAZOLE 500MG/100ML 100 ML IV SCH ×3 (05:16→23:54)
[2021-03-07] MEDS: Ensure Enlive Chocolate 8oz Bottle PO SCH ×3 (05:27→18:17)
[2021-03-07] MEDS: ALBUTEROL SULF 2.5 MG/0.5ML(0.5%) NEB SOLN NEB SCH ×5 (05:56→22:45)
[2021-03-07] MEDS: IPRATROPIUM BROM 0.5 MG/2.5ML INH SOL NEB SCH ×5 (05:56→22:45)
[2021-03-07] MEDS: ACETYLCYSTEINE 20%(200MG/ML) SOL 4ML NEB SCH ×5 (05:57→22:45)
[2021-03-07] MEDS: SUCRALFATE 1 GM/10 ML ORAL SUSP PO SCH ×4 (08:17→21:37)
[2021-03-07 08:59] VITALS: BP 102/65
[2021-03-07] MEDS: ENOXAPARIN SOD 40 MG/0.4 ML SYRINGE SC SCH (09:02)
[2021-03-07] MEDS: METOPROLOL TARTRATE 25 MG TAB PO SCH ×2 (09:03→22:00)
[2021-03-07] MEDS: PANTOPRAZOLE 40 MG/10 ML VIAL INJ IV SCH ×2 (09:19→21:37)
[2021-03-07 11:32] LABS: Basophils # (auto) 0 10 ^3/uL (0-0.2); Basophils % (auto) 0.3 % (0.0-2.0); Eosinophils # (auto) 0.1 10 ^3/uL (0-0.8); Eosinophils % (auto) 0.9 % (0.0-7.0); Hematocrit 34.9 % (41.0-53.0); Hemoglobin 11.8 g/dL (13.5-17.5); Lymphocytes # (auto) 1.5 10 ^3/uL (0.4-5.4); Lymphocytes % (auto) 17.4 % (10.0-50.0); Mean Corpuscular Hemoglobin 29.3 pg (28.0-32.0); Mean Corpuscular Hgb Conc. 33.9 g/dL (32.0-36.0); Mean Corpuscular Volume 86.6 fL (80.0-100.0); Monocytes # (auto) 0.6 10 ^3/uL (0-1.3); Neutrophils # (auto) 6.5 10 ^3/uL (1.6-8.6); Neutrophils % (auto) 74.4 % (37.0-80.0); Red Blood Cells 4.03 10^6/uL (4.5-5.90); White Blood Cell 8.7 10^3/uL (4.4-10.8)
[2021-03-07 11:44] LABS: Anion Gap 8 (5-15); Blood Urea Nitrogen 2 mg/dL (7-18); Calcium 8.4 mg/dL (8.5-10.1); Carbon Dioxide 18 mmol/L (21-32); Chloride 110 mmol/L (98-107); Glucose 108 mg/dL (74-106); Magnesium 2.1 mg/dL (1.6-2.6); Potassium 3.6 mmol/L (3.5-5.1); Sodium 136 mmol/L (136-145)
[2021-03-07 11:52] LABS: BUN/Creatinine Ratio 13.3; GFR African American 1054 mL/min; GFR Non-African American 871 mL/min
[2021-03-07 13:00] VITALS: BP 98/49
[2021-03-07 16:38] VITALS: BP 104/48
[2021-03-07] MEDS: HYOSCYAMINE SULF 0.125 MG ODT TAB PO PRN (17:12)
[2021-03-07] MEDS: levoFLOXacin 750MG 150 ML IV SCH (21:36)
[2021-03-07 22:00] VITALS: BP 100/48
[2021-03-08] MEDS: ACCU-CHEK COMFORT CURVE STRIP VI SCH ×5 (00:12→16:17)
[2021-03-08] MEDS: HYOSCYAMINE SULF 0.125 MG ODT TAB PO PRN (01:55)
[2021-03-08] MEDS: InsuLIN REG 1unit/0.01ml Soln (100units/ml) SC SCH ×5 (04:00→16:00)
[2021-03-08 05:00] VITALS: BP 92/53
[2021-03-08] MEDS ORDERED: HYDROcodone-ACET 5/325MG TAB PO PRN (05:30)
[2021-03-08] MEDS: IPRATROPIUM BROM 0.5 MG/2.5ML INH SOL NEB SCH ×3 (06:00→14:05)
[2021-03-08] MEDS: ACETYLCYSTEINE 20%(200MG/ML) SOL 4ML NEB SCH ×3 (06:00→14:05)
[2021-03-08] MEDS: ALBUTEROL SULF 2.5 MG/0.5ML(0.5%) NEB SOLN NEB SCH ×3 (06:00→14:05)
[2021-03-08] MEDS: metroNIDAZOLE 500MG/100ML 100 ML IV SCH ×2 (06:26→13:52)
[2021-03-08] MEDS: SUCRALFATE 1 GM/10 ML ORAL SUSP PO SCH ×3 (06:26→17:00)
[2021-03-08] MEDS: HYDROcodone-ACET 10/325MG TAB PO PRN ×2 (06:27→13:53)
[2021-03-08] MEDS: Ensure Enlive Chocolate 8oz Bottle PO SCH ×3 (08:16→18:00)
[2021-03-08 09:00] VITALS: BP 100/54
[2021-03-08] MEDS: PANTOPRAZOLE 40 MG/10 ML VIAL INJ IV SCH (09:18)
[2021-03-08] MEDS: ENOXAPARIN SOD 40 MG/0.4 ML SYRINGE SC SCH (09:19)
[2021-03-08] MEDS: METOPROLOL TARTRATE 25 MG TAB PO SCH ×2 (09:19→12:45)
[2021-03-08] MEDS: D5W/SOD CHL 0.45% 1,000 ML IV SCH (12:45)
[2021-03-08 13:00] VITALS: BP 105/63
[2021-03-08 14:09] VITALS: BP 105/63
[2021-03-08 16:52] VITALS: BP 101/60
== END 2021-03-08 18:10 | disposition home health service (06) | DRG 207 ==
LOC: ER 14:48 → EDBD 14:48 → TELE 22:04 → TELE-WESTW 23:28 → ICU WEST 02-27 10:11 → TELE-CENTR 03-03 18:05
PROVIDERS: ADMIT Nurse Practitioner Family; ATTEND Internal Medicine
PROC: 0D9670Z Drainage of Stomach with Drainage Device, Via Natural or Artificial Opening (ICD-10-PCS; 2021-02-24)
PROC: 5A1955Z Respiratory Ventilation, Greater than 96 Consecutive Hours (ICD-10-PCS; principal; 2021-02-27)
PROC: 05HB33Z Insertion of Infusion Device into Right Basilic Vein, Percutaneous Approach (ICD-10-PCS; 2021-02-28)
PROC: 0B918ZZ Drainage of Trachea, Via Natural or Artificial Opening Endoscopic (ICD-10-PCS; 2021-03-03)
DX: J96.21 Acute and chronic respiratory failure with hypoxia (principal); R65.11 Systemic inflammatory response syndrome (SIRS) of non-infectious origin with acute organ dysfunction; J18.9 Pneumonia, unspecified organism; K56.7 Ileus, unspecified; J90 Pleural effusion, not elsewhere classified; J98.11 Atelectasis; Z99.11 Dependence on respirator [ventilator] status; I47.1 Supraventricular tachycardia; K62.89 Other specified diseases of anus and rectum; E16.2 Hypoglycemia, unspecified; G71.01 Duchenne or Becker muscular dystrophy; D72.829 Elevated white blood cell count, unspecified; I10 Essential (primary) hypertension; K21.9 Gastro-esophageal reflux disease without esophagitis; J45.909 Unspecified asthma, uncomplicated; Z74.01 Bed confinement status; Z93.0 Tracheostomy status; K52.9 Noninfective gastroenteritis and colitis, unspecified; J04.10 Acute tracheitis without obstruction; Z88.6 Allergy status to analgesic agent; Z88.5 Allergy status to narcotic agent; Z88.8 Allergy status to other drugs, medicaments and biological substances; Z20.822 Contact with and (suspected) exposure to COVID-19
CPT/HCPCS: 31645; 36415; 36600; 71045; 71275; 73030; 74176; 80048; 80053; 81001; 82805; 82962; 83690; 83735; 84100; 84484; 85025; 85610; 87040; 87070; 87077; 87081; 87205; 87426; 93005; 93306; 94002; 94003; 94640; 96365; 96367; 96375; A4605; A4618; C9113; G0378; J0171; J1956; J2001; J2250; J2405; J3480; J3490